=== PATIENT | female | born 1940 | race Caucasian/White ===

== ENCOUNTER 2016-11-28 07:46 | Emergency (ER) | payer MEDICARE, BC ==
--- NOTE | ~2016-11-28 | ER ---
PATIENT'S NAME: [facility] AGE: 76 Y [address] ROOM: [place] [address] LOCATION: [facility] ADMIT DATE: 11/28/2016 ER/Outpatient Report DISCHARGE DATE: 11/28/2016 FAMILY PHYSICIAN: Jovita Rosa MD ATTENDING PHYSICIAN: Larry Rose CHIEF COMPLAINT: Abdominal pain. HISTORY OF PRESENT ILLNESS: The patient states that for the last several days, she has had abdominal discomfort and today it was even worse. The pain radiates kind of up toward her back and right shoulder. The pain started last night about an hour after she ate and has not relented. It typically and has been present after eating over the last week but usually resolves, however, it has not today. She denies any true chest pain or shortness of breath associated with this. The patient has not had any prior symptoms. Her family member notes that she eats almost exclusively fast food and drinks significant amounts of carbonated caffeinated beverages such as pop. She does note that she is tired as well. PAST MEDICAL HISTORY: As documented on the record have been reviewed by me. SOCIAL HISTORY: As documented on the record have been reviewed by me. MEDICATIONS: As documented on the record have been reviewed by me. ALLERGIES: DOCUMENTED ON THE RECORD HAVE BEEN REVIEWED BY ME. REVIEW OF SYSTEMS: All systems were reviewed and negative except as noted in the HPI. PHYSICAL EXAMINATION: VITAL SIGNS: Blood pressure 130/63, pulse 64, respiratory rate 17, temp 97.7, SpO2 is 98% on room air. Pain 7/10. GENERAL: Age-appropriate female, disheveled and tired appearance, resting comfortably on exam table, in no acute pain or distress. NEUROLOGIC: The patient is awake and alert. GCS is 15. No obvious abnormalities. No asymmetry on exam. HEENT: Normocephalic, atraumatic. Eyes are PERRL. The oropharynx is clear without erythema, exudates, or adenopathy. NECK: Supple. Trachea is midline. PATIENT'S NAME: [facility] AGE: 76 Y [address] ROOM: [place] [address] LOCATION: [facility] ADMIT DATE: 11/28/2016 ER/Outpatient Report DISCHARGE DATE: 11/28/2016 FAMILY PHYSICIAN: Jovita Rosa MD ATTENDING PHYSICIAN: Larry Rose CHEST/HEART: Regular rate and rhythm with no murmurs. LUNGS: Clear to auscultation bilateral with no rhonchi, wheezes, or rales. ABDOMEN: Soft, nontender, and nondistended. No rebound or guarding. There is negative Hollins sign. The right lower quadrant is benign. No suprapubic tenderness. BACK: Back is nontender throughout. No CVA tenderness. EXTREMITIES: Warm and well perfused. No obvious edema or swelling otherwise. SKIN: Warm, dry, and intact with no obvious rashes. LABS AND X-RAYS: The patient did receive an upright abdominal film with no abnormalities per my read. EKG reveals sinus rhythm, rate of 60 with normal intervals and axis. Some flipped T-waves in the precordium but no other obvious abnormalities. Urinalysis with contamination not consistent with infection. Procalcitonin 0.07. Troponin I is below threshold. Free T4 and TSH of 1.3 and 3.92 respectively. GGT of 27. CBC without abnormalities. INR 0.92. CMS without any elevation of the LFTs or bilirubin. Creatinine of 1.6. GFR is 31. The patient's creatinine is up to 1.6 from 1.3. GFR is down from 48. Amylase and lipase are within normal limits. CRP is 0.92. Rapid strep is negative. Lactate is 1.5. IMPRESSION: 1. Abdominal pain, likely peptic ulcer disease. 2. Azotemia, likely chronic. EMERGENCY DEPARTMENT COURSE: The patient was seen and evaluated as above. She was given a GI cocktail with almost complete resolution of her symptoms. Some fentanyl was given prior to that with some improvement. Her presentation is not consistent with dissection. Labs are not consistent with hepatobiliary pathology at this time. She has no evidence of ischemic bowel nor perforation. Her presentation is not consistent with diverticulitis. The correlation with meals makes ulcer disease much more likely. I am recommending famotidine and omeprazole. She was given a L of fluid for her presumed azotemia. She needs to follow up with her primary care physician as needed. MD OLYA ROJAS/gregory /[id number] d: 11/28/162003 t: 12/08/16 1733, OUTPATIENT REPORT
[2016-11-28 08:35] LABS: BASOPHIL % 0.5 %; EOSINOPHIL # 0.1 K/uL (0.0-0.5); EOSINOPHIL % 1.5 %; HEMATOCRIT 40.2 % (33.0-46.0); HEMOGLOBIN 13.9 g/dL (10.0-15.0); IMMATURE GRANULOCYTE % 0.2 %; LYMPHOCYTE # 1.6 K/uL (0.8-4.0); LYMPHOCYTE % 19.9 %; MCH 31.2 pg (27.0-34.0); MCHC 34.6 gm/dL (32.0-36.5); MCV 90.3 fl (83.0-98.0); MONOCYTE # 0.7 K/uL (0.0-1.0); MONOCYTE % 8.2 %; MPV 10.4 fl (9.4-12.4); NEUTROPHIL # (ANC) 5.7 K/uL (1.8-7.8); NEUTROPHIL % 69.7 %; NRBC % 0 /100WBC (0-0.00); PLATELET COUNT 288 K/uL (150-450); RBC 4.45 M/uL (3.50-5.50); RDW-CV 13.1 % (11.9-14.6); WBC 8.2 K/uL (4.0-11.0)
[2016-11-28 08:49] LABS: INR - (THERAPEUTIC) 0.92 (0.92-1.07); PROTIME 9.6 SECONDS (9.8-11.4); PTT 22 SECONDS (25-32)
[2016-11-28 08:52] LABS: ANION GAP 16.9 (10.0-19.0); CALCIUM 9.2 mg/dL (8.5-10.5); CREATININE 1.6 mg/dL (0.5-1.1); POTASSIUM 3.9 mMol/L (3.7-5.1); TOTAL BILIRUBIN 0.4 mg/dL (0.0-1.5); TOTAL PROTEIN 7.5 g/dL (6.0-8.4)
[2016-11-28 09:15] LABS: BILIRUBIN URINE NEGATIVE (NEGATIVE); BLOOD URINE NEGATIVE /UL (NEGATIVE); COLOR URINE YELLOW (YELLOW); GLUCOSE URINE NEGATIVE (NEGATIVE); KETONE URINE NEGATIVE (NEGATIVE); LEUKOCYTES URINE 25 /UL (NEGATIVE); NITRITE URINE NEGATIVE (NEGATIVE); PROTEIN URINE NEGATIVE (NEGATIVE); SPEC GRAVITY URINE 1.015 (1.003-1.035); TURBIDITY URINE CLEAR (CLEAR); UROBILINOGEN URINE NORMAL (NORMAL)
[2016-11-28 09:27] LABS: BACTERIA URINE NEGATIVE (NEGATIVE); EPITHELIAL URINE 20-50 #/HPF (NEGATIVE); MUCUS URINE 1+ (NEGATIVE); RBC URINE RARE #/HPF (NEGATIVE)
== END 2016-11-28 11:47 | disposition disaster alternative care site (69) ==
LOC: GMED 07:46
PROVIDERS: Emergency Medicine
DX: R10.9 Unspecified abdominal pain (principal); I10 Essential (primary) hypertension; R79.89 Other specified abnormal findings of blood chemistry; Z79.899 Other long term (current) drug therapy
CPT/HCPCS: J2405; J3010; J7030

== ENCOUNTER → 2017-03-23 | Outpatient (CLI) | payer MEDICARE, BC | LOC: GBCOE 10:59 | DX: Z12.31 Encounter for screening mammogram for malignant neoplasm of breast (principal); R92.1 Mammographic calcification found on diagnostic imaging of breast | CPT/HCPCS: G0202 ==